=== PATIENT | female | born 1970 | race African-American/Black ===

== ENCOUNTER 2016-11-05 12:20 | Emergency (ER) | payer BC, OTHER ==
[~2016-11-05] VITALS: Ht 160 cm; Wt 120.2 kg
[~2016-11-05 12:20] MED LIST: IBUPROFEN 800800 MG PO; MEDROLDOSEPACK PO; NOHOMEMEDICATIONS; NORCO 5-325 TA1 EACH PO; NYSTATIN 1100000 U/M TP
[2016-11-05] MEDS ORDERED: COLACE100 MG PO (14:40)
[2016-11-05] MEDS ORDERED: MIRALAX17 GM PO (14:41)
[2016-11-05 15:23] VITALS: BP 137/89
== END 2016-11-05 15:25 | disposition home or self-care (01) ==
LOC: ER 12:20
DX: K59.00 Constipation, unspecified (principal); F10.99 Alcohol use, unspecified with unspecified alcohol-induced disorder

== ENCOUNTER 2017-02-21 20:30 | Emergency (ER) | payer BC, OTHER ==
[~2017-02-21] VITALS: Ht 160 cm; Wt 77.1 kg
--- NOTE | ~2017-02-21 | EKG ---
[address] [address] ELECTROCARDIOGRAM REPORT Name: ERIN PHILLIPS Room #: DEP [facility]#: [id number] Admission: 02/21/17 Attend Phys: Discharge: 02/21/17 Date of : 74 Report #: [id number] THIS REPORT FOR: //name// [facility] ED Test Date: 2017-02-21 Test Time: 20:30:36 Pat Name: ERIN PHILLIPS Department: Room: Gender: F Neuropsychology Medical Consultant: BURKE : 1970 Requested By: Orlando Lagos Order Number: [id number] MD: Dawit Messina Measurements Intervals [place] Rate: 72 P: 41 MO: 120 QRS: 37 QRSD: 80 T: 21 QT: 389 QTc: 426 Interpretive Statements Sinus rhythm No significant abnormality Compared to ECG 04/21/2015 11:36:42 No significant change was found Electronically Signed On 02-22-2017 13:47:16 [employer] by Dawit Messina [email or web address] <ELECTRONICALLY SIGNED> By: Dawit Messina MD, [facility] 02/22/17 1347 2030 29 Dawit Messina MD, FACC /EPI
[~2017-02-21 20:30] MED LIST changes: +COLACE100 MG PO; +MIRALAX17 GM PO
[2017-02-21] MEDS ORDERED: PREDNISONE 20 M20 MG PO (20:36)
[2017-02-21] MEDS ORDERED: MUCINEX D TABL1 EACH PO (20:36)
[2017-02-21] MEDS ORDERED: ACETAMINOPHEN-1 EAC1 PO (22:14)
== END 2017-02-21 22:43 | disposition home or self-care (01) ==
LOC: ER 20:30
DX: J40 Bronchitis, not specified as acute or chronic (principal)

== ENCOUNTER 2018-06-05 01:29 | Emergency (ER) | payer BC, OTHER ==
[~2018-06-05] VITALS: Ht 160 cm; Wt 74.8 kg
[~2018-06-05 01:29] MED LIST changes: +ACETAMINOPHEN-1 EAC1 PO; +MUCINEX D TABL1 EACH PO; +PREDNISONE 20 M20 MG PO
[2018-06-05 02:21] LABS: HEMATOCRIT 35.1 % (37.0-47.0); HEMOGLOBIN 11.2 gm/dL (12.0-15.0); MCH 27.2 pg (26.0-34.0); MCV 85.1 fL (80.0-100.0); RBC 4.13 mil/uL (4.20-5.00); RDW 14.3 % (10.5-14.5); WBC 11.3 thou/uL (4.0-11.0)
[2018-06-05 02:25] LABS: ANION GAP 15 mmol/L (7-16); BUN 9 mg/dL (7-18); CALCIUM 8.8 mg/dL (8.5-10.1); CHLORIDE 101 mmol/L (98-107); CO2 23 mmol/L (21-32); CREATININE 0.7 mg/dL (0.6-1.0); GLUCOSE 122 mg/dL (74-106); POTASSIUM 3.5 mmol/L (3.5-5.1); SODIUM 139 mmol/L (136-145)
[2018-06-05 02:31] LABS: ALBUMIN 4.3 g/dL (3.4-5.0); DIRECT BILIRUBIN < 0.1 mg/dL (<0.1-0.3); SGOT 33 U/L (15-37); SGPT 69 U/L (30-65); TOTAL BILIRUBIN 0.4 mg/dL (<0.1-1.0); TOTAL PROTEIN 8.3 g/dL (6.4-8.2)
[2018-06-05 03:29] LABS: URINE BILIRUBIN NEGATIVE (Negative); URINE BLOOD TRACE (Negative); URINE CLARITY CLEAR; URINE COLOR YELLOW; URINE GLUCOSE-RANDOM* NEGATIVE (Negative); URINE KETONES NEGATIVE (Negative); URINE LEUKOCYTES-REFLEX NEGATIVE (Negative); URINE NITRITE-REFLEX NEGATIVE (Negative); URINE PROTEIN (DIPSTICK) NEGATIVE (Negative); URINE SPECIFIC GRAVITY <= 1.005 (1.005-1.035); URINE UROBILINOGEN 0.2 E.U./dl (0.2-1.0)
[2018-06-05 03:38] LABS: AMP/METHAMP Negative (Negative); BARBITURATES Negative (Negative); BENZODIAZEPINES Negative (Negative); COCAINE Negative (Negative); METHADONE Negative (Negative); OPIATES Negative (Negative); PCP Negative (Negative)
[2018-06-05 05:28] VITALS: BP 111/63
== END 2018-06-05 05:30 | disposition home or self-care (01) ==
LOC: ER 01:29
PROVIDERS: Emergency Medicine
DX: F10.129 Alcohol abuse with intoxication, unspecified (principal)

== ENCOUNTER 2019-08-14 05:40 | Emergency (ER) | payer BC, OTHER ==
[~2019-08-14] VITALS: Ht 160 cm; Wt 78.5 kg
[2019-08-14] MEDS ORDERED: IBUPROFEN 200200 M1 PO (06:16)
[2019-08-14 07:28] LABS: ABSOLUTE NEUTROPHILS 11.2 thou/uL (1.4-8.2); BASOPHILS 0.7 % (0.0-2.0); EOSINOPHILS 0.5 % (0.0-3.0); HEMATOCRIT 38.8 % (37.0-47.0); HEMOGLOBIN 12.9 gm/dL (12.0-15.0); LYMPHOCYTES 18.5 % (24.0-44.0); MCH 29.7 pg (26.0-34.0); MCHC 33.2 g/dL (28.0-37.0); MCV 89.4 fL (80.0-100.0); MONOCYTES 6.9 % (1.0-8.0); PLATELET COUNT 243 thou/uL (150-400); POLYS 73.4 % (36.0-66.0); RBC 4.34 mil/uL (4.20-5.00); RDW 13.3 % (10.5-14.5); WBC 15.2 thou/uL (4.0-11.0)
[2019-08-14 07:36] LABS: CALCIUM 8.5 mg/dL (8.5-10.1); CREATININE 0.8 mg/dL (0.6-1.0); POTASSIUM 3.5 mmol/L (3.5-5.1)
[2019-08-14 07:44] LABS: DIRECT BILIRUBIN 0.1 mg/dL (<0.1-0.2); TOTAL BILIRUBIN 0.6 mg/dL (0.2-1.0); TOTAL PROTEIN 7.7 g/dL (6.4-8.2)
[2019-08-14 09:35] VITALS: BP 125/77
[2019-08-14] MEDS ORDERED: CYCLOBENZAPRINE5 MG PO (09:41)
[2019-08-14] MEDS ORDERED: MOBIC15 MG PO (09:41)
[2019-08-14] MEDS ORDERED: NORCO 5-325 TA1 EAC2 PO (09:41)
== END 2019-08-14 09:58 | disposition home or self-care (01) ==
LOC: ER 05:40
PROVIDERS: Emergency Medicine
DX: S16.1XXA Strain of muscle, fascia and tendon at neck level, initial encounter (principal); R51 Headache; Z79.1 Long term (current) use of non-steroidal anti-inflammatories (NSAID); X58.XXXA Exposure to other specified factors, initial encounter; Y93.89 Activity, other specified; Y92.89 Other specified places as the place of occurrence of the external cause; Y99.8 Other external cause status